=== PATIENT | female | born 1975 | race Caucasian/White ===

== ENCOUNTER 2019-07-11 12:33 | Inpatient (IN) | payer BC, OTHER ==
[2019-07-11] MEDS ORDERED: Buffered Lidocaine 1% SYRIN* 1 ML/SYRINGE INTRADERM ONE ×2 (13:11→23:20)
[2019-07-11] MEDS ORDERED: Lactated Ringers 1000 ML Bag* 1,000 ML IV ONE ×2 (13:11→14:54)
--- NOTE | 2019-07-11 13:26 | HP ---
General Information - Reason for Visit at 41 6/7 weeks EGA, Prior section in labor. Patient transferred to the hospital for pain relief after attempt at home attended by her Pediatric Physical Therapist Aruna Anderson. - General Information Maternal Age: 44 Grav: 7 Para: 2 SAB: 4 IEA: 0 Estimated Due Date: 06/29/19 Gestational Age in Weeks/Days: 41 6/7 Maternal Blood Type and Rh: A Positive - Results this Serology/RPR Result: Non-Reactive Rubella Result: Immune HBsAg Result: Negative HIV Result: Negative GBS Culture Result: Positive - Patient treated with PO clindamycin by her Pediatric Physical Therapist in order to "clear" GBS risks at delivery. Patient aware this is not a recommended nor appropriate protocol for GBS prophylaxis in labor and declines GBS prophylaxis despite counseling and recommendations. Past Medical History Delivery History: Hx C/Section - after having a in first . Pertinent Past Medical History: See Records Past Medical History Comment: Anxiety/Depression Eating disorder Pertinent Past Surgical History: See Records - 2006 42 week for NRFM in labor. Past Surgical History Comment: 2006 section Pertinent Family History: See Records - Antepartal Records Antepartal Records: Reviewed, Complicated by: - Advanced Maternal age , Postdates GBS + and prior Section Review of Systems Constitutional: Uncomfortable CV Complaint: No Respiratory: Shortness of Breath: No Gastrointestinal: No Nausea/Vomiting, Normal Bowel Movement, Nausea, Vomiting Genitourinary: No Dysuria, No Bleeding, No Leaking Fluid Musculoskeletal: No Epigastric Pain, Contractions Neurological: No Headache, No Visual Changes Movement: Normal Exam Allergies/Adverse Reactions: Allergies No Known Allergies Allergy (Verified 09/10/16 19:01) Temp 97.5 BP 129/85 P 81 RR 19 POx 100% RA - Measurements Height: 5 ft 5 in Pre- Weight: 124 lb - Pt declined wieght measures prenatally - Exam Breast: Breast Exam Deferred CVA: No CVA Tenderness Extremities: No Edema Heart: Normal Rhythm/Heart Sounds HEENT: No Significant Findings Lungs: Clear Bilaterally Rectal: Rectal Exam Deferred Reflexes: DTR 2+ Thyroid: No Thyromegaly - Abdominal Exam Abdomen Exam: Non-Tender, Fundal Height Consistent with Dates - Ultrasound/Biophysical Profile Ultrasound Status: Not Done Targeted Exam Findings See L&D Outpatient Visit Provider Note for Findings: N/A Cervical Exam: 6cm Effacement: 80% Station: 0 Presenting Part: Vertex Membrane Status: Intact EFM Findings - External Monitor Findings Baseline Heart Rate: 130 External Monitor Findings: Accelerations Present, No Pattern of Variable or Late Decelerations Contractions: Regular - Q 5-7 min apart, Moderate, 45-90 Seconds Assessment/Plan - Assessment in labor, GBS positive declines GBS prophylaxis. - Obstetrical Risk Factors Obstetrical Risk Factors: GBS Positive, Post-Dates, Previous C/Section in Labor , Psychosocial Issues, Psychiatric Issues - Plan Plan: IV Hydration, Admit - Anticipate Vaginal Delivery - Date/Time of Admission Date of Admission: 07/11/19 Time of Admission: 01:40
[2019-07-11] MEDS ORDERED: OBEPIDURAL* 250 ML EPIDURAL ONE (13:29)
[2019-07-11 13:39] LABS: ABS Lymphocytes 1.5 10^3/ul (1.0-4.8); ABS Monocytes 0.8 10^3/ul (0-0.8); ABS Neutrophils 13.5 10^3/ul (1.5-7.7); Eosinophil % 0.1 %; Hematocrit 36 % (35-47); Hemoglobin 12.4 g/dL (12.0-16.0); Lymphocyte % 9.7 %; Mean Corpuscular HGB Conc 35 g/dL (31-36); Mean Corpuscular Hemoglobin 31 pg (27-31); Mean Corpuscular Volume 88 fL (80-97); Mean Platelet Volume 11.9 fL (7.4-10.4); Platelet Count 154 10^3/uL (150-450); Red Blood Count 4.07 10^6 /uL (3.70-4.87); Red Cell Distribution Width 14 % (10-15); White Blood Count 15.8 10^3/uL (3.5-10.8)
[2019-07-11 13:54] LABS: Urine Benzodiazepine Screen None Detected (None Detect); Urine Opiates Screen None Detected (None Detect)
[2019-07-11] MEDS ORDERED: Lactated Ringers 1000 ML Bag* 1,000 ML IV SCH ×3 (14:00→23:45)
[2019-07-11] MEDS ORDERED: Famotidine TAB* 20 MG PO PRN (14:54)
[2019-07-11] MEDS ORDERED: Sodium Citrate/Citric Acid* 15 ML UDC PO PRN (14:54)
[2019-07-11] MEDS ORDERED: EPHEDrine (Pressors)* 50 MG/ML VIAL IV PUSH PRN ×2 (14:54)
[2019-07-11] MEDS ORDERED: Phenylephrine 40 MCG/ML SYRINGE IV PUSH PRN ×2 (14:54)
[2019-07-11] MEDS ORDERED: Lactated Ringers 1000 ML Bag* 500 ML IV PRN ×2 (14:54)
[2019-07-11] MEDS ORDERED: OBEPIDURAL* 250 ML EPIDURAL SCH (15:00)
[2019-07-11] MEDS ORDERED: Oxytocin in LR* 20 UNITS/1,000 ML BAG IVPB SCH (17:00)
[2019-07-11] MEDS ORDERED: Sodium Citrate/Citric Acid* 15 ML UDC ONE (23:14)
[2019-07-11] MEDS ORDERED: ceFOXitin 2 GM IVPREMIX* 2 GM/50 ML BAG ONE (23:14)
[2019-07-11] MEDS ORDERED: Morphine PF AMP (0.5MG/ML)* 5 MG/10 ML AMP ONE (23:15)
[2019-07-11] MEDS ORDERED: OXYTOCIN* 10 UNITS/ML 1 ML VIAL ONE (23:15)
[2019-07-11] MEDS ORDERED: Phenylephrine 40 MCG/ML SYRINGE ONE (23:15)
[2019-07-11] MEDS ORDERED: Sodium Citrate/Citric Acid* 15 ML UDC PO ONE (23:20)
[2019-07-11] MEDS ORDERED: Naloxone* 0.4 MG/ML 1 ML VIAL IV PRN (23:23)
[2019-07-11] MEDS ORDERED: fentaNYL* 50 MCG/ML 2 ML VIAL (100 MCG VIAL) IV PRN (23:23)
[2019-07-11] MEDS ORDERED: Ondansetron INJ* 2 MG/ML VIAL IV PRN (23:23)
[2019-07-12] MEDS ORDERED: Naloxone* 0.4 MG/ML 1 ML VIAL IV PRN (00:02)
[2019-07-12] MEDS ORDERED: Scopolamine 1.5 mg* PATCH TRANSDERM PRN (00:02)
[2019-07-12] MEDS ORDERED: diPHENhydraMINE IV* 50 MG/ML 1 ml VIAL (BENADRYL) IV PRN (00:02)
[2019-07-12] MEDS ORDERED: oxyCODONE/Acetamin 5/325 MG* TAB PO PRN ×3 (00:02→16:00)
[2019-07-12] MEDS ORDERED: Nalbuphine* 10 MG/ML 1 ML VIAL IV PRN (00:02)
[2019-07-12] MEDS ORDERED: Ondansetron INJ* 2 MG/ML VIAL IV PRN (00:02)
[2019-07-12] MEDS ORDERED: Ondansetron INJ* 2 MG/ML VIAL ONE (00:24)
[2019-07-12] MEDS ORDERED: Metoclopramide IV* 5 MG/ML 2 ML VIAL ONE (00:24)
[2019-07-12] MEDS ORDERED: Scopolamine 1.5 mg* PATCH ONE (00:25)
[2019-07-12] MEDS: Ketorolac INJ* 30 MG/ML 1 ML VIAL IV PRN ×4 (03:41→22:07)
[2019-07-12] MEDS ORDERED: Dibucaine 1% 28.35 GM TUBE PR PRN (13:34)
[2019-07-12] MEDS ORDERED: Zolpidem TAB* 5 MG PO PRN (13:34)
[2019-07-12] MEDS ORDERED: Glycerin ADULT SUPP PR PRN (13:34)
[2019-07-12] MEDS ORDERED: Witch Hazel PAD* JAR TOPICAL PRN (13:34)
[2019-07-12] MEDS ORDERED: Lactated Ringers 1000 ML Bag* 1,000 ML IV SCH (14:00)
[2019-07-12] MEDS: Docusate CAP* 100 MG PO SCH ×2 (14:24→21:09)
--- NOTE | 2019-07-12 15:37 | PN ---
Progress Note - Progress Note Date of Service: 07/12/19 SOAP: Subjective: [Pt doing well this AM. POD#1 s/p rLTCS in the context of failed TOLAC, attempted homebirth, transfer for pain control. ultimately secondary to arrest of dilation. ] Objective: [AVSS, afebrile, hemodynamically stable Gen: nad, aaox3 CV: RRR Pulm: CTABL Abd: soft, nd, nttp, no rebound, no guarding, fundus firm below the Umbilicus Incision: bandage in place, minimal shadowing Ext: warm, nttp, neg phi's, SCD's on and inflating : aly in and draining adequate urine] Assessment/Plan: 44 y/o Para 3 POD#1 s/p pLTCS in the context of failed TOLAC, homebirth attempt transfer to hospital for pain control, rLTCS ultimately secondary to arrest of dilation: - AVSS, afebrile, hemodynamically stable - Hct in the AM on 07/13 - Doing well post operatively - Aly out this evening, awaiting spontaneous void - Tolerating regular diet - Pain well controlled - Rh+ - Continue routine post-operative care DO AMMY Toribio, PGY4 []
[2019-07-12] MEDS ORDERED: Acetaminophen TAB* 325 MG PO PRN (16:00)
[2019-07-12] MEDS: oxyCODONE/Acetamin 5/325 MG* TAB PO PRN ×2 (16:10→21:09)
[2019-07-12] MEDS: Simethicone TAB* 80 MG TAB.CHEW PO SCH ×2 (18:05→21:09)
[2019-07-13] MEDS: oxyCODONE/Acetamin 5/325 MG* TAB PO PRN ×4 (02:36→21:09)
[2019-07-13] MEDS: Ibuprofen TAB* 600 MG PO PRN ×2 (04:14→15:28)
[2019-07-13 06:50] LABS: ABS Eosinophils 0.1 10^3/ul (0-0.6); ABS Lymphocytes 1.9 10^3/ul (1.0-4.8); ABS Monocytes 0.9 10^3/ul (0-0.8); ABS Neutrophils 11.6 10^3/ul (1.5-7.7); Eosinophil % 0.7 %; Hematocrit 26 % (35-47); Hemoglobin 8.9 g/dL (12.0-16.0); Mean Corpuscular HGB Conc 34 g/dL (31-36); Mean Corpuscular Hemoglobin 31 pg (27-31); Mean Corpuscular Volume 90 fL (80-97); Mean Platelet Volume 11.6 fL (7.4-10.4); Platelet Count 120 10^3/uL (150-450); Red Blood Count 2.91 10^6 /uL (3.70-4.87); Red Cell Distribution Width 14 % (10-15); White Blood Count 14.5 10^3/uL (3.5-10.8)
[2019-07-13] MEDS: Simethicone TAB* 80 MG TAB.CHEW PO SCH ×4 (08:01→21:09)
[2019-07-13] MEDS: Docusate CAP* 100 MG PO SCH ×3 (08:01→21:09)
[2019-07-13] MEDS: Ferrous Gluconate TAB* 324 MG TAB PO SCH ×2 (08:01→21:09)
--- NOTE | 2019-07-13 10:19 | PN ---
Progress Note - Progress Note Date of Service: 07/13/19 Note: Progress Note Date of Service: 07/13/19 Subjective: Pt doing well this AM. POD#2 s/p rLTCS in the context of failed TOLAC, attempted homebirth, transfer for pain control. ultimately secondary to arrest of dilation. Doing very well. Up and ambulating. Tolerating regular diet, voiding spontaneously. Pain appropriately controlled with PO pain medications. Denies fever, chills, n/v/d, cp, sob. ] Objective: AVSS, afebrile, hemodynamically stable Gen: nad, aaox3 CV: RRR Pulm: CTABL Abd: soft, nd, nttp, no rebound, no guarding, fundus firm below the Umbilicus Incision: bandage in place, minimal shadowing Ext: warm, nttp, neg phi's, trace edema : aly is out, pt voiding spontaneously, uop adequate Assessment/Plan: 44 y/o Para 3 POD#2 s/p rLTCS in the context of failed TOLAC, homebirth attempt transfer to hospital for pain control, rLTCS ultimately secondary to arrest of dilation: - AVSS, afebrile, hemodynamically stable - Hct this AM 26, pt started on PO Fe , pt is asymptomatic. - Tolerating regular diet w/o n/v - Voiding spontaneously - Pain appropriately controlled with PO pain medications - Rh+ - Continue routine post-operative care, anticipate discharge home tomorrow DO AMMY Toribio
--- NOTE | 2019-07-13 22:19 | OP ---
CC: Dr. Freddie Avelar.* DATE OF OPERATION: 07/11/19 - ROOM #117 DATE OF : 71 SURGEON: Alexi Huerta MD INSTRUMENT TECHNICIAN HELPER: Dr. Freddie Avelar. ANESTHESIA: Spinal. PRE-OP DIAGNOSES: at 41 weeks, prior section with arrest of dilation and descent. POST-OP DIAGNOSES: at 41 weeks, prior section with arrest of dilation and descent. OPERATIVE PROCEDURE: Repeat low transverse section. ESTIMATED BLOOD LOSS: 600 cc. SPECIMENS SENT TO PATHOLOGY: Cord blood. FLUIDS: She received 2400 cc of IV crystalloid fluid. URINE OUTPUT: Clear. FINDINGS: Delivery of a female infant with a nuchal cord x1, meconium fluid, weighing 7 pounds 2 ounces with Apgars of 8 and 9. The placenta was grossly intact. The uterus, adnexa, bowel, and bladder were all within normal limits. DESCRIPTION OF PROCEDURE: The patient was taken to the operating room where she was identified. She was placed on the operating table where a spinal anesthetic was obtained without difficulty. She was then prepped and draped in normal sterile fashion in the supine position with a leftward tilt. A Pfannenstiel skin incision was made with a knife and carried through to underlying layer of fascia. The fascia was nicked in the midline and extended laterally with curved Pearl scissors. The fascia was then grasped superiorly and inferiorly with Hiram clamps and dissected off sharply from the rectus muscle. The rectus muscle was then in the midline bluntly. The peritoneum was identified, grasped with pickups, entered sharply with Metzenbaum scissors, and extended superiorly and inferiorly sharply. A bladder blade was inserted into the patient's abdomen. A bladder flap was created using Metzenbaum scissors over which the bladder blade was then reinserted. A low transverse uterine incision was made with a knife, extended laterally with bandage scissors. The amniotic sac was ruptured. Meconium-stained fluid was noted. The 's head was then grasped and delivered atraumatically. Nuchal cord x1 was then reduced. The rest of the 's body was then delivered. The cord was clamped and cut. The infant was then handed off to awaiting drapery inspector. Cord bloods were obtained and the placenta was then removed manually. The uterus was then exteriorized, cleared of all clot and debris using moist laparotomy sponges. The uterine incision was then closed using 0 Polysorb suture in a running fashion with a second imbricating layer of 0 Polysorb suture. The uterus was then returned to the patient's abdomen. The gutters were then cleared of all clot and debris using moist laparotomy sponges. The uterine incision was noted to be hemostatic. All the sponges and instruments were removed from the patient's abdomen. The peritoneum was then closed using 2 -0 Polysorb suture in a running fashion. The fascia was closed using 0 Polysorb suture in a running fashion and the skin was closed with a 4-0 Monocryl subcuticular stitch. The patient tolerated the procedure well. Sponge , lap, and needle counts were correct x2. She was then transferred to the recovery room area in stable condition. [id number]/CPS #: [id number] LORIN
[2019-07-14] MEDS: Ibuprofen TAB* 600 MG PO PRN ×2 (02:14→08:56)
[2019-07-14 07:48] VITALS: BP 144/81
[2019-07-14] MEDS: Simethicone TAB* 80 MG TAB.CHEW PO SCH (08:56)
[2019-07-14] MEDS: Docusate CAP* 100 MG PO SCH (08:56)
[2019-07-14] MEDS: Ferrous Gluconate TAB* 324 MG TAB PO SCH (08:56)
[2019-07-14] MEDS ORDERED: Tetan/Diph/Pertus SYR(Tdap)* 0.5 ML SYR(BOOSTRIX) use SYR contains LATEX IM ONE (09:30)
[2019-07-14] MEDS: oxyCODONE/Acetamin 5/325 MG* TAB PO PRN (11:43)
[2019-07-15] MEDS ORDERED: Scopolamine PATCH Remove* 1 NOTE MISC PATCH OFF PRN (00:05)
== END 2019-07-14 13:20 | disposition home or self-care (01) | DRG 540 ==
LOC: MCHOBOUT 12:33 → MCHOB 12:59
PROVIDERS: ADMIT Obstetrics & Gynecology; ATTEND Obstetrics & Gynecology
PROC: 10907ZC Drainage of Amniotic Fluid, Therapeutic from Products of Conception, Via Natural or Artificial Opening (ICD-10-PCS; 2019-07-11)
PROC: 10D00Z1 Extraction of Products of Conception, Low, Open Approach (ICD-10-PCS; principal; 2019-07-11 23:24)
DX: O48.0 Post-term pregnancy (principal); O99.344 Other mental disorders complicating childbirth; F41.8 Other specified anxiety disorders; O99.824 Streptococcus B carrier state complicating childbirth; O77.0 Labor and delivery complicated by meconium in amniotic fluid; O62.0 Primary inadequate contractions; O69.81X0 Labor and delivery complicated by cord around neck, without compression, not applicable or unspecified; O32.4XX0 Maternal care for high head at term, not applicable or unspecified; O34.211 Maternal care for low transverse scar from previous cesarean delivery; O66.41 Failed attempted vaginal birth after previous cesarean delivery; O90.81 Anemia of the puerperium; D64.9 Anemia, unspecified; Z3A.41 41 weeks gestation of pregnancy; Z37.0 Single live birth
CPT/HCPCS: 36415; 80307; 85025; 86850; 86900; 86901; 90715; A9270-GY; J0694; J1885; J2405; J2590; J2765; J3010